=== PATIENT | male | born 1945 | race American Indian/Alaskan Native ===

== ENCOUNTER 2018-08-05 14:22 | Emergency (ER) | payer MEDICARE, OTHER ==
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
[2018-08-05 15:01] VITALS: BP 134/89
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
== END 2018-08-05 19:06 | disposition home or self-care (01) ==
LOC: ED 14:22
DX: S16.1XXA Strain of muscle, fascia and tendon at neck level, initial encounter (principal); S39.012A Strain of muscle, fascia and tendon of lower back, initial encounter; M79.601 Pain in right arm; K21.9 Gastro-esophageal reflux disease without esophagitis; Z87.891 Personal history of nicotine dependence; V49.49XA Driver injured in collision with other motor vehicles in traffic accident, initial encounter; Y93.89 Activity, other specified; Y92.89 Other specified places as the place of occurrence of the external cause; Y99.8 Other external cause status
CPT/HCPCS: 72040; 72100

== ENCOUNTER 2020-02-02 13:06 | Inpatient (IN) | payer MEDICARE, OTHER ==
--- NOTE | 2020-02-02 13:51 | Emergency Department Report ---
ED Shortness of Breath HPI - General Chief Complaint: Dyspnea/Respdistress Stated Complaint: SOB/DIZZY/DARK URINE/BODY ACHE Time Seen by Provider: 02/02/20 13:36 Source: patient, EMS Mode of arrival: Stretcher Limitations: No Limitations - History of Present Illness Initial Comments: 74-year-old male, history of enlarged prostate, hypercholesterolemia, presents to ED for evaluation. Patient states over the last 2 to 3 weeks he has been experiencing body aches, nausea, fatigue, slight cough, shortness of breath, decreased appetite, loss of smell and taste. Patient denies fever, vomiting, diarrhea. Patient states he has not been tested for COVID-19. MD Complaint: shortness of breath -: week(s) (2) Severity: moderate Consistency: intermittent Improves With: rest Worsens With: exertion Associated Symptoms: cough - Related Data Home Medications Medication Instructions Recorded Confirmed Last Taken Doxazosin [Cardura] 8 mg PO DAILY 04/03/14 06/07/14 06/06/14 Omeprazole [PriLOSEC] 20 mg PO HS 04/03/14 06/07/14 06/06/14 Simvastatin 20 mg PO HS 04/03/14 06/07/14 06/06/14 Citalopram [celeXA] 40 mg PO DAILY 04/12/14 06/07/14 06/06/14 Imipramine (Nf) [Tofranil (Nf)] 50 mg PO DAILY 04/12/14 06/07/14 06/06/14 Aspirin EC [Aspirin Enteric Coated 81 mg PO QDAY 06/07/14 06/07/14 2 Months Ago TAB] ~04/09/14 Previous Rx's Medication Instructions Recorded Last Taken Type Diclofenac EC [Voltaren] 25 mg PO TID PRN #30 tablet 08/05/18 Unknown Rx Menthol/Camphor [[place] 1 applicatio TP QID PRN #1 tube 08/05/18 Unknown Rx Ointment] Methocarbamol [Robaxin] 500 mg PO TID PRN #30 tablet 08/05/18 Unknown Rx predniSONE [Deltasone] 40 mg PO QDAY 5 Days #10 tab 08/05/18 Unknown Rx Allergies Allergy/AdvReac Type Severity Reaction Status Date / Time No Known Allergies Allergy Verified 08/05/18 15:01 ED Review of Systems ROS: Stated complaint: SOB/DIZZY/DARK URINE/BODY ACHE Other details as noted in HPI Comment: All other systems reviewed and negative Constitutional: malaise, weakness. denies: chills, fever ENT: other (Reports loss of smell and taste). denies: throat pain, congestion Respiratory: cough, shortness of breath Cardiovascular: denies: chest pain Gastrointestinal: nausea. denies: vomiting, diarrhea Musculoskeletal: myalgia Neurological: denies: headache ED Past Medical Hx - Past Medical History Previous Medical History?: Yes Hx Hypertension: No Hx Heart Attack/AMI: No Hx Congestive Heart Failure: No Hx GERD: Yes Hx Arthritis: No Hx Asthma: No Hx COPD: No Hx Tuberculosis: No Hx HIV: No Additional medical history: Curvative spine - Surgical History Past Surgical History?: No - Social History Smoking Status: Never Smoker Substance Use Type: None - Medications Home Medications: Home Medications Medication Instructions Recorded Confirmed Last Taken Type Doxazosin [Cardura] 8 mg PO DAILY 04/03/14 06/07/14 06/06/14 History Omeprazole [PriLOSEC] 20 mg PO HS 04/03/14 06/07/14 06/06/14 History Simvastatin 20 mg PO HS 04/03/14 06/07/14 06/06/14 History Citalopram [celeXA] 40 mg PO DAILY 04/12/14 06/07/14 06/06/14 History Imipramine (Nf) [Tofranil (Nf)] 50 mg PO DAILY 04/12/14 06/07/14 06/06/14 History Aspirin EC [Aspirin Enteric Coated 81 mg PO QDAY 06/07/14 06/07/14 2 Months Ago History TAB] ~04/09/14 Diclofenac EC [Voltaren] 25 mg PO TID PRN #30 tablet 08/05/18 Unknown Rx Menthol/Camphor [[place] 1 applicatio TP QID PRN #1 tube 08/05/18 Unknown Rx Ointment] Methocarbamol [Robaxin] 500 mg PO TID PRN #30 tablet 08/05/18 Unknown Rx predniSONE [Deltasone] 40 mg PO QDAY 5 Days #10 tab 08/05/18 Unknown Rx ED Physical Exam - General Limitations: No Limitations General appearance: alert, in no apparent distress - Head Head exam: Present: atraumatic, normocephalic - Eye Eye exam: Present: normal appearance, EOMI - ENT ENT exam: Present: mucous membranes moist - Neck Neck exam: Present: normal inspection - Respiratory Respiratory exam: Present: normal lung sounds bilaterally, respiratory distress (mild), other (Tachypneic) - Cardiovascular Cardiovascular Exam: Present: normal rhythm, tachycardia - GI/Abdominal GI/Abdominal exam: Present: soft. Absent: distended, tenderness - Extremities Exam Extremities exam: Present: normal inspection - Neurological Exam Neurological exam: Present: alert, oriented X3 - Psychiatric Psychiatric exam: Present: normal affect, normal mood - Skin Skin exam: Present: warm, dry, intact, normal color ED Course Vital Signs 02/02/20 02/02/20 02/02/20 13:13 13:20 13:30 Temperature 99.5 F Pulse Rate 120 H 127 H 101 H Respiratory 18 17 23 Rate Blood Pressure 138/94 128/79 O2 Sat by Pulse 97 97 96 Oximetry 02/02/20 02/02/20 02/02/20 13:46 13:53 14:00 Temperature Pulse Rate 102 H 100 H Respiratory 19 20 35 H Rate Blood Pressure 114/77 121/77 O2 Sat by Pulse 96 88 94 Oximetry 02/02/20 02/02/20 02/02/20 14:16 14:30 14:45 Temperature Pulse Rate 102 H 103 H 103 H Respiratory 32 H 30 H 36 H Rate Blood Pressure 120/77 117/76 111/72 O2 Sat by Pulse 93 95 95 Oximetry 02/02/20 02/02/20 02/02/20 15:00 15:15 15:30 Temperature Pulse Rate 102 H 103 H 101 H Respiratory 30 H 44 H 27 H Rate Blood Pressure 117/73 122/77 130/86 O2 Sat by Pulse 96 92 95 Oximetry 02/02/20 02/02/20 02/02/20 15:45 16:00 16:15 Temperature Pulse Rate 103 H 108 H 100 H Respiratory 35 H 27 H 24 Rate Blood Pressure 130/86 118/84 112/60 O2 Sat by Pulse 97 93 96 Oximetry 02/02/20 02/02/20 02/02/20 16:30 16:45 17:00 Temperature 99.9 F H Pulse Rate 103 H 105 H Respiratory 35 H 31 H Rate Blood Pressure 118/70 118/70 O2 Sat by Pulse 94 97 Oximetry 02/02/20 02/02/20 02/02/20 17:01 17:15 17:30 Temperature Pulse Rate 124 H Respiratory 27 H Rate Blood Pressure 123/91 123/91 126/91 O2 Sat by Pulse 90 91 94 Oximetry 02/02/20 02/02/20 02/02/20 17:45 18:01 18:15 Temperature Pulse Rate 125 H 121 H 106 H Respiratory 26 H 36 H 19 Rate Blood Pressure 126/87 140/84 150/86 O2 Sat by Pulse 94 93 95 Oximetry 02/02/20 18:30 Temperature Pulse Rate 100 H Respiratory 31 H Rate Blood Pressure 129/90 O2 Sat by Pulse 91 Oximetry ED Medical Decision Making - Lab Data Result diagrams: 02/02/20 13:46 02/02/20 15:42 - EKG Data -: EKG Interpreted by Me EKG shows normal: sinus rhythm, intervals, QRS complexes, ST-T waves Rate: tachycardia (rate 106) - EKG Data Interpretation: no acute changes - Radiology Data Radiology results: report reviewed, image reviewed - Medical Decision Making 74-year-old male presents to ED with 2 to 3-week history of symptoms which inc lude shortness of breath, loss of smell and taste, fatigue, decreased appetite, and slight cough. O2 sats 88% on room air. Chest x-ray shows patchy parenchymal opacities. Patient's symptoms are suspicious for COVID-19. Patient has been given Decadron, Rocephin, azithromycin. Blood cultures drawn. He is currently on on 3 L O2 via NC. Patient will be admitted by hospitalist, Dr. Donnelly, for further management. - Differential Diagnosis Pneumonia, COVID-19, pulmonary edema Critical Care Time: Yes Critical care time in (mins) excluding proc time.: 35 Critical care attestation.: If time is entered above; I have spent that time in minutes in the direct care of this critically ill patient, excluding procedure time. Critical Care Time: 35 min ED Disposition Clinical Impression: Suspected COVID-19 virus infection, Pneumonia, Sepsis Respiratory failure with hypoxia Qualifiers: Chronicity: acute Qualified Code(s): J96.01 - Acute respiratory failure with hypoxia Disposition: OP ADMIT IP TO THIS HOSP Is pt being admited?: Yes Condition: Stable Time of Disposition: 15:19
[2020-02-02 14:16] LABS: Basophils % (Auto) 0.6 % (0.0-1.8); Eosinophils # (Auto) 0.1 K/mm3 (0.0-0.4); Eosinophils % (Auto) 1.9 % (0.0-4.3); Lymphocytes # (Auto) 1.1 K/mm3 (1.2-5.4); Lymphocytes % (Auto) 16.6 % (13.4-35.0); Mean Corpuscular HGB Conc 36 % (32-34); Mean Corpuscular Volume 89 fl (84-94); Monocytes # (Auto) 0.6 K/mm3 (0.0-0.8); Platelet Count 303 K/mm3 (140-440); Red Blood Count 3.48 M/mm3 (3.65-5.03)
[2020-02-02 14:28] LABS: INR 1.05 (0.87-1.13); Partial Thromboplastin Time 37.8 Sec. (24.2-36.6)
[2020-02-02 14:42] LABS: Alanine Aminotransferase 48 units/L (7-56); Albumin 3.3 g/dL (3.9-5); BUN/Creatinine Ratio 19; Blood Urea Nitrogen 21 mg/dL (9-20); Calcium 9.1 mg/dL (8.4-10.2); Hemolysis Index 6
[2020-02-02 14:51] LABS: Bilirubin,Direct < 0.2 mg/dL (0-0.2)
--- NOTE | 2020-02-02 15:14 | XRay Report ---
CHEST 1 VIEW 1:52 PM INDICATION / CLINICAL INFORMATION: Shortness of breath. COMPARISON: None available. FINDINGS: SUPPORT DEVICES: None. HEART / MEDIASTINUM: The heart size and pulmonary vasculature are normal. LUNGS / PLEURA: Possible minimal areas of poorly defined patchy parenchymal opacity in the right mid to lower lung peripherally. No definite abnormality in the left lung. No pleural effusion. No pneumot horax. ADDITIONAL FINDINGS: Partial eventration of the right hemidiaphragm. Mild thoracolumbar scoliosis. IMPRESSION: Possible mild patchy areas of parenchymal opacity in the right lung. Atypical causes of p neumonia, including viral pneumonia, should be entered. Signer Name: Rigoberto Billings MD Signed: 02/02/2020 3:09 PM Workstation Name: [id number]
[2020-02-02] MEDS ORDERED: AZITHROMYCIN 250 MG TAB PO ONE (15:16)
[2020-02-02] MEDS ORDERED: cefTRIAXone/NS 1 GM/50 ML 1 GM/50 ML BAG IV ONE (15:16)
[2020-02-02] MEDS ORDERED: DEXAMETHASONE 4 MG TAB PO ONE (15:16)
--- NOTE | 2020-02-02 15:20 | History and Physical Report ---
History of Present Illness Chief complaint: I have not been feeling well History of present illness: 74 YO Male with HTN, GERD, HLD, BPH presents to ED for evaluation. Patient states that he has " not been feeling well" over the past 3 weeks with persistently worsening symptoms over the same timeframe. Patient acknowledges dry cough, weakness, shortness of breath, decreased exercise tolerance, malaise, body aches, loss of sense of smell, loss of sense of taste, and diminished oral intake. EMS notified and upon arrival the patient was found to be in distress with a pulse oximetry of 90% on room air. The patient was placed on submental oxygen and subsequently transported to [facility] for further care and evaluation of the aforementioned symptoms. The patient was seen and evaluated in the emergency department. All lab and imaging studies reviewed. Patient was found to have a pulse oximetry of 87% on room air with exertion which is consistent with acute hypoxemic respiratory failure. The patient underwent a chest x-ray and was found to have bilateral pneumonia as well as clinical symptoms consistent with sepsis. The patient was admitted to medical floor and initiated on sepsis protocol as well as coronavirus protocol due to increased risk of multiple organ system failure. Patient denies shaking chills, chest pain, palpitation, skin rash, recent ill contacts, unilateral leg swelling, calf pain, prolonged travel/immobility, individual/family history of DVT/PE/bleeding/blood clotting disorders, recent ill contacts, or known exposure to COVID-19. No prior admission for review. All medication listed at time of admission has been reconciled. Advanced care planning conducted in ED. Past History Past Medical History: GERD, hypertension, hyperlipidemia Past Surgical History: No surgical history, Other (Reviewed) Social history: . denies: smoking, alcohol abuse, prescription drug abuse Family history: hypertension Medications and Allergies Allergies Allergy/AdvReac Type Severity Reaction Status Date / Time No Known Allergies Allergy Verified 08/05/18 15:01 Home Medications Medication Instructions Recorded Confirmed Last Taken Type Doxazosin [Cardura] 8 mg PO DAILY 04/03/14 06/07/14 06/06/14 History Omeprazole [PriLOSEC] 20 mg PO HS 04/03/14 06/07/14 06/06/14 History Simvastatin 20 mg PO HS 04/03/14 06/07/14 06/06/14 History Citalopram [celeXA] 40 mg PO DAILY 04/12/14 06/07/14 06/06/14 History Imipramine (Nf) [Tofranil (Nf)] 50 mg PO DAILY 04/12/14 06/07/14 06/06/14 Hi story Aspirin EC [Aspirin Enteric Coated 81 mg PO QDAY 06/07/14 06/07/14 2 Months Ago History TAB] ~04/09/14 Diclofenac EC [Voltaren] 25 mg PO TID PRN #30 tablet 08/05/18 Unknown Rx Menthol/Camphor [[place] 1 applicatio TP QID PRN #1 tube 08/05/18 Unknown Rx Ointment] Methocarbamol [Robaxin] 500 mg PO TID PRN #30 tablet 08/05/18 Unknown Rx predniSONE [Deltasone] 40 mg PO QDAY 5 Days #10 tab 08/05/18 Unknown Rx Active Meds: Active Medications Ceftriaxone Sodium (Rocephin/Ns 1 Gm/50 Ml) 1 gm in 50 mls @ 100 mls/hr IV ONCE ONE; Protocol Stop: 02/02/20 15:45 Review of Systems Constitutional: fatigue, weakness, malaise Ears, nose, mouth and throat: no ear pain, no ear discharge, no tinnitis, no decreased hearing, no nose pain Cardiovascular: no chest pain, no orthopnea, no palpitations, no edema Respiratory: cough, shortness of breath, no cough with sputum, no excessive sputum, no hemoptysis Gastrointestinal: no abdominal pain, no vomiting, no diarrhea, no constipation, no hematemesis Genitourinary Male: no hematuria, no flank pain, no discharge, no urinary freq uency, no urinary hesitancy Rectal: no pain, no incontinence, no bleeding Musculoskeletal: no neck stiffness, no neck pain, no shooting arm pain, no arm numbness/tingling, no low back pain Integumentary: no rash, no pruritis, no redness, no sores, no jaundice Neurological: no transient paralysis, no paralysis, no weakness, no parathesias, no numbness, no tingling, no seizures Psychiatric: no anxiety, no memory loss, no change in sleep habits, no insomnia, no change in libido Endocrine: no heat intolerance, no excessive thirst, no polydipsia, no nocturia, no excessive sweating, no weight change Hematologic/Lymphatic: no easy bruising, no easy bleeding Allergic/Immunologic: no urticaria, no persistent infections, no anaphylaxis Exam - Constitutional Vitals: Temp Pulse Resp BP Pulse Ox 99.5 F 120 H 20 138/94 88 02/02/20 13:13 02/02/20 13:13 02/02/20 13:53 02/02/20 13:13 02/02/20 13:53 General appearance: Present: mild distress - EENT Eyes: Present: PERRL ENT: hearing intact, clear oral mucosa - Neck Neck: Present: supple, normal ROM - Respiratory Respiratory effort: labored, accessory muscle use, stridor Respiratory: bilateral: diminished, rhonchi - Cardiovascular Rhythm: other (Tachycardia) Heart Sounds: Present: S1 & S2. Absent: rub, click - Extremities Extremities: pulses symmetrical, No edema Peripheral Pulses: abnormal (Capillary refill greater than 3.5 seconds) - Abdominal General gastrointestinal: Present: soft, non-tender, non-distended, normal bowel sounds Male genitourinary: Present: normal - Integumentary Integumentary: Present: erythema, clammy, decreased turgor - Musculoskeletal Musculoskeletal: generalized weakness - Psychiatric Psychiatric: appropriate mood/affect, intact judgment & insight - Neurologic Neurologic: CNII-XII intact, moves all extremities HEART Score - HEART Score Troponin: Troponin T < 0.010 ng/mL (0.00-0.029) 02/02/20 13:46 Results - Labs CBC & Chem 7: 02/02/20 13:46 02/02/20 15:42 Labs: Abnormal lab results 02/02/20 02/02/20 02/02/20 Range/Units 13:46 13:46 14:00 RBC 3.48 L (3.65-5.03) M/mm3 Hgb 11.0 L (11.8-15.2) gm/dl Hct 31.0 L (35.5-45.6) % MCHC 36 H (32-34) % Lucas % (Auto) 9.0 H (0.0-7.3) % Lymph # (Auto) 1.1 L (1.2-5.4) K/mm3 Seg Neutrophils % 71.9 H (40.0-70.0) % APTT (24.2-36.6) Sec. D-Dimer (0-234) ng/mlDDU Sodium 135 L (137-145) mmol/L Potassium 3.5 L (3.6-5.0) mmol/L BUN 21 H (9-20) mg/dL Glucose 117 H (75-100) mg/dL Ferritin 813.5 H (30.0-300.0) ng/mL AST 62 H (5-40) units/L Lactate Dehydrogenase 345 H (91-180) units/L C-Reactive Protein 9.80 H (0.00-1.30) mg/dL Albumin 3.3 L (3.9-5) g/dL 02/02/20 Range/Units Unknown RBC (3.65-5.03) M/mm3 Hgb (11.8-15.2) gm/dl Hct (35.5-45.6) % MCHC (32-34) % Lucas % (Auto) (0.0-7.3) % Lymph # (Auto) (1.2-5.4) K/mm3 Seg Neutrophils % (40.0-70.0) % APTT 37.8 H (24.2-36.6) Sec. D-Dimer 595.65 H (0-234) ng/mlDDU Sodium (137-145) mmol/L Potassium (3.6-5.0) mmol/L BUN (9-20) mg/dL Glucose (75-100) mg/dL Ferritin (30.0-300.0) ng/mL AST (5-40) units/L Lactate Dehydrogenase (91-180) units/L C-Reactive Protein (0.00-1.30) mg/dL Albumin (3.9-5) g/dL Assessment and Plan - Patient Problems (1) Sepsis Current Visit: Yes Status: Acute Plan to address problem: Sepsis protocol: CBC, CMP, chest x-ray, urinalysis, blood culture, IV antibiotic therapy. Hold IV fluid resuscitation therapy for now due to suspected coronavirus infection. Care is taken to avoid fluid overload and flash pulmonary edema. Monitor fluid balance, monitor urine output every shift, maintain mean arterial blood pressure greater than 60, serial lactic acid level, (2) Pneumonia Current Visit: Yes Status: Acute Plan to address problem: Pneumonia protocol: Chest x-ray, CBC, CMP, blood culture, IV antibiotic therapy, nebulizer therapy, pulse oximetry, blood culture. (3) Respiratory failure with hypoxia Current Visit: Yes Status: Acute Qualifiers: Chronicity: acute Qualified Code(s): J96.01 - Acute respiratory failure with hypoxia Plan to address problem: Supplemental oxygen, chest x-ray, nebulizer therapy, pulse oximetry, will initiate high flow supplemental oxygen if patient is unable to maintain pulse oximetry above 90% on supplemental oxygen via nasal cannula. Noninvasive positive pressure ventilation as clinically indicated. (4) Suspected COVID-19 virus infection Current Visit: Yes Status: Acute Plan to address problem: Coronavirus protocol: Contact precautions, isolation precautions, prone positioning while in bed, supportive care, supplemental oxygen, pulse oximetry, nebulizer therapy, coronavirus PCR ordered and is pending at time of admission. (5) DVT prophylaxis Current Visit: Yes Status: Acute Plan to address problem: SCD to bilateral lower extremities while in bed, prophylactic anticoagulation (6) Advance care planning Current Visit: Yes Status: Acute Plan to address problem: Disease education conducted, patient is full code, prognosis discussed, care plan discussed, patient knowledges understanding and agreement with care plan, +30 minutes
[2020-02-02] MEDS ORDERED: ACETAMINOPHEN 325 MG TAB PO PRN (15:22)
[2020-02-02] MEDS ORDERED: ALBUTEROL 2.5 MG/3 ML NEBU IH PRN (15:22)
[2020-02-02] MEDS ORDERED: ONDANSETRON 4 MG/2 ML INJ IV PRN (15:22)
[2020-02-02] MEDS ORDERED: MENTHOL TP PRN (15:25)
[2020-02-02] MEDS ORDERED: DICLOFENAC EC 25 MG TAB PO PRN (15:25)
[2020-02-02] MEDS ORDERED: [UNRECOGNIZED DRUG - OTHER] TP PRN (15:25)
[2020-02-02] MEDS ORDERED: CAMPHOR TP PRN (15:25)
[2020-02-02] MEDS: HYDROmorphone 1 MG/1 ML INJ IV PRN ×2 (16:32→20:41)
[2020-02-02 16:43] LABS: C-Reactive Protein 9.6 mg/dL (0.00-1.30)
[2020-02-02] MEDS: ACETAMINOPHEN 325 MG TAB PO PRN (18:43)
[2020-02-02] MEDS ORDERED: NON-FORMULARY EACH (Omeprazole [Prilosec] 20 MG Capsule.Dr) PO SCH (22:00)
[2020-02-02] MEDS ORDERED: NON-FORMULARY EACH (Simvastatin [Simvastatin] 10 MG Tablet) PO SCH (22:00)
[2020-02-02] MEDS: PRAVASTATIN 40 MG TAB PO SCH (22:53)
[2020-02-02] MEDS: FAMOTIDINE 20 MG TAB PO SCH (22:53)
[2020-02-02] MEDS: methylPREDNISolone Sod Succinate 40 MG/1 ML INJ IV SCH (22:53)
[2020-02-02] MEDS: HEPARIN 5,000 UNIT/1 ML VIAL SUB-Q SCH (22:54)
[2020-02-03 05:57] LABS: Basophils % (Auto) 0.1 % (0.0-1.8); Hematocrit 43.9 % (35.5-45.6); Hemoglobin 14.6 gm/dl (11.8-15.2); Lymphocytes # (Auto) 0.7 K/mm3 (1.2-5.4); Lymphocytes % (Auto) 20.9 % (13.4-35.0); Mean Corpuscular HGB Conc 33 % (32-34); Mean Corpuscular Volume 91 fl (84-94); Monocytes # (Auto) 0.2 K/mm3 (0.0-0.8); Monocytes % (Auto) 5.6 % (0.0-7.3); Platelet Count 265 K/mm3 (140-440); Red Blood Count 4.81 M/mm3 (3.65-5.03); Red Cell Distribution Width 13.6 % (13.2-15.2)
[2020-02-03 06:14] LABS: BUN/Creatinine Ratio 29; Blood Urea Nitrogen 23 mg/dL (9-20); Hemolysis Index 3
[2020-02-03] MEDS: methylPREDNISolone Sod Succinate 40 MG/1 ML INJ IV SCH (06:37)
[2020-02-03] MEDS: ASPIRIN EC 81 MG TAB PO SCH (09:55)
[2020-02-03] MEDS: HEPARIN 5,000 UNIT/1 ML VIAL SUB-Q SCH ×2 (09:56→21:23)
[2020-02-03] MEDS: CITALOPRAM 10 MG TAB PO SCH (09:57)
[2020-02-03] MEDS ORDERED: AZITHROMYCIN 250 MG TAB PO SCH (10:00)
[2020-02-03] MEDS ORDERED: cefTRIAXone/NS 2 GM/100 ML 2 GM/100 ML BAG IV SCH (10:00)
[2020-02-03] MEDS ORDERED: IMIPRAMINE 25 MG PO SCH (10:00)
[2020-02-03] MEDS ORDERED: AZITHROMYCIN 500 MG in SODIUM CHLORIDE 0.9% 250ML 250 ML IV SCH (10:00)
[2020-02-03] MEDS: FAMOTIDINE 20 MG TAB PO SCH ×2 (10:26→21:23)
[2020-02-03] MEDS: DOXAZOSIN 4 MG TAB PO SCH (10:55)
--- NOTE | 2020-02-03 11:17 | Consultation ---
History of Present Illness Reason for consult: dyspnea History of present illness: This is a gentleman with history of 3 weeks of weakness and sob. Found to be hypoxic and pneumonia on cxr in ER. Presently on o2 still sob feels slightly better. He reports that for the past 3 weeks he has had sob and cough w associated weakness. These symptoms never improved and on the day of admssion he had worsening dyspnea and cough. Ems called o2 sat 90% on ra supplement o2 started . In the er noted to hypoxic , cxr noted w rt sided pneumonia.. Presently awaiting covid test Past History Past Medical History: GERD, hypertension, hyperlipidemia Past Surgical History: No surgical history, Other (Reviewed) Social history: . denies: smoking, alcohol abuse, prescription drug abuse Family history: hypertension Medications and Allergies Allergies Allergy/AdvReac Type Severity Reaction Status Date / Time No Known Allergies Allergy Verified 08/05/18 15:01 Home Medications Medication Instructions Recorded Confirmed Last Taken Type Doxazosin [Cardura] 8 mg PO DAILY 04/03/14 02/02/20 06/06/14 History Simvastatin 20 mg PO HS 04/03/14 02/02/20 06/06/14 History Citalopram [celeXA] 40 mg PO DAILY 04/12/14 02/02/20 06/06/14 History Imipramine (Nf) [Tofranil (Nf)] 50 mg PO DAILY 04/12/14 02/02/20 06/06/14 History Finasteride [Proscar] 5 mg PO QDAY 02/02/20 02/02/20 Unknown History Pantoprazole [Protonix] 40 mg PO QDAY 02/02/20 02/02/20 Unknown History Active Meds: Active Medications Acetaminophen (Acetaminophen 325 Mg Tab) 650 mg PO Q4H PRN PRN Reason: Pain MILD(1-3)/Fever >100.5/GUEVARA Last Admin: 02/02/20 18:43 Dose: 650 mg Documented by: Albuterol (Albuterol 2.5 Mg/3 Ml Nebu) 2.5 mg IH Q4HRT PRN PRN Reason: Shortness Of Breath Aspirin (Aspirin Ec 81 Mg Tab) 81 mg PO QDAY [facility] Last Admin: 02/03/20 09:55 Dose: 81 mg Documented by: Azithromycin (Azithromycin 250 Mg Tab) 500 mg PO QDAY [facility] Last Admin: 02/03/20 09:57 Dose: 500 mg Documented by: Citalopram Hydrobromide (Citalopram 10 Mg Tab) 40 mg PO DAILY [facility] Last Admin: 02/03/20 09:57 Dose: 40 mg Documented by: Diclofenac Sodium (Diclofenac Ec 25 Mg Tab) 25 mg PO TID PRN PRN Reason: pain Doxazosin Mesylate (Doxazosin 4 Mg Tab) 8 mg PO DAILY [facility] Last Admin: 02/03/20 10:55 Dose: 8 mg Documented by: Famotidine (Famotidine 20 Mg Tab) 20 mg PO BID [facility] Last Admin: 02/03/20 10:26 Dose: 20 mg Documented by: Heparin Sodium (Porcine) (Heparin 5,000 Unit/1 Ml Vial) 5,000 unit SUB-Q Q12HR [facility] Last Admin: 02/03/20 09:56 Dose: 5,000 unit Documented by: Hydromorphone HCl (Hydromorphone 1 Mg/1 Ml Inj) 0.25 mg IV Q4H PRN PRN Reason: Pain, Moderate (4-6) Last Admin: 02/02/20 20:41 Dose: 0.25 mg Documented by: Ceftriaxone Sodium (Rocephin/Ns 2 Gm/100 Ml) 2 gm in 100 mls @ 200 mls/hr IV Q24HR [facility]; Protocol Last Admin: 02/03/20 09:57 Dose: 200 mls/hr Documented by: Methylprednisolone Sodium Succinate (Methylprednisolone Sod Succinate 40 Mg/1 Ml Inj) 40 mg IV Q8HR [facility] Last Admin: 02/03/20 06:37 Dose: 40 mg Documented by: Miscellaneous Medication (Imipramine) 50 mg PO DAILY [facility] Ondansetron HCl (Ondansetron 4 Mg/2 Ml Inj) 4 mg IV Q8H PRN PRN Reason: Nausea And Vomiting Pravastatin Sodium (Pravastatin 40 Mg Tab) 40 mg PO QHS [facility] Last Admin: 02/02/20 22:53 Dose: 40 mg Documented by: Sodium Chloride (Sodium Chloride 0.9% 10 Ml Flush Syringe) 10 ml IV BID [facility] Last Admin: 02/03/20 10:01 Dose: 10 ml Documented by: Sodium Chloride (Sodium Chloride 0.9% 10 Ml Flush Syringe) 10 ml IV PRN PRN PRN Reason: LINE FLUSH Last Admin: 02/03/20 06:37 Dose: 10 ml Documented by: Review of Systems Constitutional: fatigue, weakness, malaise, poor appetite Respiratory: cough, shortness of breath Physical Examination Vital signs: Vital Signs Temp Pulse Resp BP Pulse Ox 99.5 F 120 H 18 138/94 97 02/02/20 13:13 02/02/20 13:13 02/02/20 13:13 02/02/20 13:13 02/02/20 13:13 General appearance: other (mild distress) Eyes: non-icteric ENT: oropharynx moist Neck: supple Ascultation: Bilateral: rhonchi Cardiovascular: regular rate and rhythm Gastrointestinal: normoactive bowel sounds, soft, non-tender, non-distended Integumentary: normal Extremities: no cyanosis normal mental status mood appropriate Results - Laboratory Findings CBC and BMP: 02/03/20 05:17 02/03/20 05:17 PT/INR, D-dimer PT 13.6 Sec. (12.2-14.9) 02/02/20 Unknown INR 1.05 (0.87-1.13) 02/02/20 Unknown D-Dimer 595.65 ng/mlDDU (0-234) H 02/02/20 Unknown Abnormal lab findings: Abnormal Labs 02/02/20 02/02/20 02/02/20 13:46 13:46 14:00 WBC RBC 3.48 L Hgb 11.0 L Hct 31.0 L MCHC 36 H [place] % (Auto) 9.0 H Lymph # (Auto) 1.1 L Seg Neutrophils % 71.9 H APTT D-Dimer Sodium 135 L Potassium 3.5 L BUN 21 H Glucose 117 H Ferritin 813.5 H AST 62 H Lactate Dehydrogenase 345 H C-Reactive Protein 9.80 H Albumin 3.3 L 02/02/20 02/02/20 02/02/20 15:42 15:42 15:42 WBC RBC Hgb Hct MCHC [place] % (Auto) Lymph # (Auto) Seg Neutrophils % APTT D-Dimer 569.00 H Sodium Potassium BUN Glucose 107 H Ferritin 859.1 H AST Lactate Dehydrogenase 509 H C-Reactive Protein 9.60 H Albumin 02/02/20 02/03/20 02/03/20 Unknown 05:17 05:17 WBC 3.5 L RBC Hgb Hct MCHC [place] % (Auto) Lymph # (Auto) 0.7 L Seg Neutrophils % 73.4 H APTT 37.8 H D-Dimer 595.65 H Sodium 136 L Potassium BUN 23 H Glucose 204 H Ferritin AST Lactate Dehydrogenase C-Reactive Protein Albumin - Diagnostic Findings Chest x-ray: report reviewed, image reviewed Assessment and Plan - Patient Problems (1) Acute respiratory failure with hypoxemia Current Visit: Yes Status: Acute (2) Pneumonia Current Visit: Yes Status: Acute (3) Sepsis Current Visit: Yes Status: Acute (4) Suspected COVID-19 virus infection Current Visit: Yes Status: Acute (5) Hypertension Current Visit: Yes Status: Acute (6) Leukopenia Current Visit: Yes Status: Acute
[2020-02-03 12:49] LABS: Hematocrit 44.6 % (35.5-45.6); Hemoglobin 14.7 gm/dl (11.8-15.2); Mean Corpuscular HGB Conc 33 % (32-34); Mean Corpuscular Volume 92 fl (84-94); Platelet Count 276 K/mm3 (140-440); Red Blood Count 4.84 M/mm3 (3.65-5.03); Red Cell Distribution Width 14.3 % (13.2-15.2)
[2020-02-03] MEDS: DEXAMETHASONE 4 MG TAB PO SCH (13:18)
--- NOTE | 2020-02-03 16:39 | Progress Note ---
Assessment and Plan -- Sepsis Due to COVID-19 pneumonia Continue to treat for underlying cause Patient has normal procalcitonin level -- COVID 19 Pneumonia Coronavirus protocol: Contact precautions, isolation precautions, prone positioning while in bed, supportive care, supplemental oxygen, pulse oximetry, nebulizer therapy, IV steroid, coronavirus PCR ordered and positive Will order for COVID-19 antibody, will follow ID recommendation -- Acute Respiratory failure with hypoxia Due to COVID-19 pneumonia Patient currently on 6 L O2 We will continue IV steroid, scheduled breathing treatment -- DVT prophylaxis SCD to bilateral lower extremities while in bed, prophylactic anticoagulation -- Advance care planning Disease education conducted, patient is full code, prognosis discussed, care plan discussed, patient knowledges understanding and agreement with care plan, +30 minutes 02/02: Patient tested positive for Covid, continue dexamethasone. Will check for a cough to antibody response. Patient might benefit for convalescent plasma therapy and IV remdesivir. Will await for ID recommendation. Subjective Date of service: 02/03/20 Interval history: Patient seen and examined. Medical records and medication list reviewed. No acute event overnight noted by the RN. Patient c/o difficulty breathing. Patient is tolerating diet. Positive for Covid test Discussed plan of care at bedside with patient. Objective - Exam Narrative Exam: GENERAL: well-developed and well-nourished AAM lying on bed appeared to be in no discomfort. HEENT: Normocephalic. Atraumatic. No conjunctival congestion or icterus. Patient has moist mucous membranes. NECK: Supple. Trachea midline. CHEST/LUNGS: diminished BS auscultated bilaterally, breathing nonlabored. HEART/CARDIOVASCULAR: Regular in rate and rhythm. S1 and S2 positive. ABDOMEN: Abdomen is soft, nontender. Patient has normal bowel sounds. SKIN: There is no rash. Warm and dry. NEURO: No focal motor deficit. Follows command. MUSCULOSKELETAL: No joint effusion or tenderness. EXTRIMITY: No edema, no cyanosis or clubbing. PSYCH: Cooperative. - Constitutional Vitals: Vital Signs - 12hr 02/03/20 02/03/20 05:59 11:43 Temperature 98.2 F 98.2 F Pulse Rate 104 H 95 H Respiratory 20 20 Rate Blood Pressure 134/82 129/88 O2 Sat by Pulse 91 92 Oximetry - Labs CBC & Chem 7: 02/03/20 12:32 02/03/20 05:17 Labs: Abnormal lab results 02/02/20 02/02/20 02/02/20 Range/Units 15:42 15:42 15:42 WBC (4.5-11.0) K/mm3 Lymph # (Auto) (1.2-5.4) K/mm3 Seg Neutrophils % (40.0-70.0) % D-Dimer 569.00 H (0-234) ng/mlDDU Sodium (137-145) mmol/L BUN (9-20) mg/dL Glucose 107 H (75-100) mg/dL Ferritin 859.1 H (30.0-300.0) ng/mL Lactate Dehydrogenase 509 H (91-180) units/L C-Reactive Protein 9.60 H (0.00-1.30) mg/dL Coronavirus (PCR) (Negative) 02/03/20 02/03/20 02/03/20 Range/Units 05:17 05:17 10:44 WBC 3.5 L (4.5-11.0) K/mm3 Lymph # (Auto) 0.7 L (1.2-5.4) K/mm3 Seg Neutrophils % 73.4 H (40.0-70.0) % D-Dimer (0-234) ng/mlDDU Sodium 136 L (137-145) mmol/L BUN 23 H (9-20) mg/dL Glucose 204 H (75-100) mg/dL Ferritin (30.0-300.0) ng/mL Lactate Dehydrogenase (91-180) units/L C-Reactive Protein (0.00-1.30) mg/dL Coronavirus (PCR) Positive A (Negative) HEART Score - HEART Score Troponin: Troponin T < 0.010 ng/mL (0.00-0.029) 02/02/20 13:46
[2020-02-03] MEDS: PRAVASTATIN 40 MG TAB PO SCH (21:23)
[2020-02-04] MEDS ORDERED: REMDESIVIR 200 MG in SODIUM CHLORIDE 0.9% 250ML 250 ML IV ONE (09:56)
[2020-02-04] MEDS: DOXAZOSIN 4 MG TAB PO SCH (10:55)
[2020-02-04] MEDS: CITALOPRAM 10 MG TAB PO SCH (10:55)
[2020-02-04] MEDS: ASPIRIN EC 81 MG TAB PO SCH (10:56)
[2020-02-04] MEDS: DEXAMETHASONE 4 MG TAB PO SCH (10:56)
[2020-02-04] MEDS: HEPARIN 5,000 UNIT/1 ML VIAL SUB-Q SCH (10:56)
[2020-02-04] MEDS: FINASTERIDE 5 MG TAB PO SCH (10:57)
[2020-02-04] MEDS: FAMOTIDINE 20 MG TAB PO SCH ×2 (10:57→22:46)
[2020-02-04] MEDS: PANTOPRAZOLE 40 MG TAB PO SCH (10:57)
[2020-02-04] MEDS ORDERED: FUROSEMIDE 40 MG/4 ML INJ IV ONE (11:00)
[2020-02-04] MEDS: ACETAMINOPHEN 325 MG TAB PO PRN (11:00)
--- NOTE | 2020-02-04 11:38 | Consultation ---
History of Present Illness - Reason for Consult Consult date: 02/04/20 - History of Present Illness 74-year-old man past medical history hypertension, hyperlipidemia, BPH admitted to hospital for general malaise of the past 3 weeks. He complains of cough weakness, shortness of breath, typical Covid symptoms. Symptoms were progressive over that timeframe since then. He was brought to the hospital for hypoxia. Denies any other symptoms. Febrile to 103.1. White count is 6.5, procalcitonin is normal, renal function is normal, inflammatory markers are elevated. Covid testing positive. Blood cultures currently pending. He is on 6 L nasal cannula. Imaging personally reviewed: Chest x-ray: Mild patchy areas of parenchymal opacity in the right lung. Review of Systems: Bold if positive, otherwise negative General: fevers, chills, rigors HEENT: visual disturbance, diplopia, eye pain Respiratory: cough, sputum, hemoptysis, shortness of breath Cardiovascular: chest pain, syncope Gastrointestinal: nausea, vomiting, diarrhea, abdominal pain Genitourinary: dysuria, hematuria, flank pain Musculoskeletal: neck pain, back pain, joint pain, edema Neurologic: headaches, seizures Hematologic: easy bruising or bleeding Endocrine: night sweats, acute weight loss Skin: rash, jaundice, redness Psychiatric: suicidal, homicidal ideation Past History Past Medical History: GERD, hypertension, hyperlipidemia Past Surgical History: No surgical history, Other (Reviewed) Social history: . denies: smoking, alcohol abuse, prescription drug abu se Family history: hypertension Medications and Allergies Allergies Allergy/AdvReac Type Severity Reaction Status Date / Time No Known Allergies Allergy Verified 08/05/18 15:01 Home Medications Medication Instructions Recorded Confirmed Last Taken Type Doxazosin [Cardura] 8 mg PO DAILY 04/03/14 02/02/20 06/06/14 History Simvastatin 20 mg PO HS 04/03/14 02/02/20 06/06/14 History Citalopram [celeXA] 40 mg PO DAILY 04/12/14 02/02/20 06/06/14 History Imipramine (Nf) [Tofranil (Nf)] 50 mg PO DAILY 04/12/14 02/02/20 06/06/14 History Finasteride [Proscar] 5 mg PO QDAY 02/02/20 02/02/20 Unknown History Pantoprazole [Protonix] 40 mg PO QDAY 02/02/20 02/02/20 Unknown History Active Meds: Active Medications Acetaminophen (Acetaminophen 325 Mg Tab) 650 mg PO Q4H PRN PRN Reason: Pain MILD(1-3)/Fever >100.5/GUEVARA Last Admin: 02/04/20 11:00 Dose: 650 mg Documented by: Albuterol (Albuterol 2.5 Mg/3 Ml Nebu) 2.5 mg IH Q4HRT PRN PRN Reason: Shortness Of Breath Aspirin (Aspirin Ec 81 Mg Tab) 81 mg PO QDAY [facility] Last Admin: 02/04/20 10:56 Dose: 81 mg Documented by: Citalopram Hydrobromide (Citalopram 10 Mg Tab) 40 mg PO DAILY [facility] Last Admin: 02/04/20 10:55 Dose: 40 mg Documented by: Dexamethasone (Dexamethasone 4 Mg Tab) 6 mg PO DAILY [facility] Stop: 02/12/20 10:01 Last Admin: 02/04/20 10:56 Dose: 6 mg Documented by: Diclofenac Sodium (Diclofenac Ec 25 Mg Tab) 25 mg PO TID PRN PRN Reason: pain Doxazosin Mesylate (Doxazosin 4 Mg Tab) 8 mg PO DAILY [facility] Last Admin: 02/04/20 10:55 Dose: 8 mg Documented by: Famotidine (Famotidine 20 Mg Tab) 20 mg PO BID [facility] Last Admin: 02/04/20 10:57 Dose: 20 mg Documented by: Finasteride (Finasteride 5 Mg Tab) 5 mg PO QDAY [facility] Last Admin: 02/04/20 10:57 Dose: 5 mg Documented by: Heparin Sodium (Porcine) (Heparin 5,000 Unit/1 Ml Vial) 5,000 unit SUB-Q Q12HR [facility] Last Admin: 02/04/20 10:56 Dose: 5,000 unit Documented by: Hydromorphone HCl (Hydromorphone 1 Mg/1 Ml Inj) 0.25 mg IV Q4H PRN PRN Reason: Pain, Moderate (4-6) Last Admin: 02/02/20 20:41 Dose: 0.25 mg Documented by: REMDESIVIR 200 mg/ Sodium (Chloride) 250 mls @ 500 mls/hr IV ONCE ONE Stop: 02/04/20 10:25 REMDESIVIR 100 mg/ Sodium (Chloride) 250 mls @ 500 mls/hr IV Q24HR@2100 [facility] Stop: 02/08/20 21:29 Miscellaneous Medication (Imipramine) 50 mg PO DAILY [facility] Ondansetron HCl (Ondansetron 4 Mg/2 Ml Inj) 4 mg IV Q8H PRN PRN Reason: Nausea And Vomiting Pantoprazole Sodium (Pantoprazole 40 Mg Tab) 40 mg PO QDAY [facility] Last Admin: 02/04/20 10:57 Dose: 40 mg Documented by: Pravastatin Sodium (Pravastatin 40 Mg Tab) 40 mg PO QHS [facility] Last Admin: 02/03/20 21:23 Dose: 40 mg Documented by: Sodium Chloride (Sodium Chloride 0.9% 10 Ml Flush Syringe) 10 ml IV BID [facility] Last Admin: 02/04/20 10:57 Dose: 10 ml Documented by: Sodium Chloride (Sodium Chloride 0.9% 10 Ml Flush Syringe) 10 ml IV PRN PRN PRN Reason: LINE FLUSH Last Admin: 02/03/20 06:37 Dose: 10 ml Documented by: Sodium Chloride (Sodium Chloride 0.9% 50 Ml Ivpb) 50 ml IV Q24HR@2100 [facility] Stop: 02/08/20 21:01 Physical Examination - Physical Exam Narrative exam: Physical exam deferred due to PPE conservation strategy. Please refer to primary team's note. - Constitutional Vitals: Vital Signs Temp Pulse Resp BP Pulse Ox 103.1 F H 106 H 20 133/91 95 02/04/20 10:34 02/04/20 10:55 02/04/20 10:34 02/04/20 10:55 02/04/20 10:34 Temperature -Last 24 Hours Temperature 103.1 F Temperature 98.7 F Temperature 99.2 F Temperature 98.3 F Temperature 98.2 F Results - Labs CBC & Chem 7: 02/03/20 12:32 02/03/20 05:17 Labs: Abnormal lab results 02/03/20 Range/Units 10:44 Coronavirus (PCR) Positive A (Negative) Assessment and Plan Cultures: Blood culture Urine culture Sputum culture Wound culture A/P: 74-year-old man past medical history hypertension, hyperlipidemia, BPH admitted with COVID-19 pneumonia #COVID-19 pneumonia: Presented with 3 weeks of symptoms, likely outside the utility window of remdesivir. Continue steroids. #Acute hypoxemic respiratory failure: Likely secondary to COVID-19 infection. Currently on 6 L nasal cannula Recs: -Continue dexamethasone 6 mg IV/PO daily for 10 days -Start remdesivir as it is likely too late for it to be useful in his disease course. -Obtain daily inflammatory markers - ferritin, Ddimer, CRP, LDH -Anticoagulation per hospital protocol -Proning as able -Stopped antibiotics due to normal procalcitonin. Dr. Huizar taking over tomorrow Thank you for the consult, we will continue to follow. Francisco Vilchis MD [facility] O: [phone] F: [phone]
--- NOTE | 2020-02-04 12:42 | Progress Note ---
Assessment and Plan - Patient Problems (1) Acute respiratory failure with hypoxemia Current Visit: Yes Status: Acute (2) Pneumonia Current Visit: Yes Status: Acute (3) Sepsis Current Visit: Yes Status: Acute (4) Suspected COVID-19 virus infection Current Visit: Yes Status: Acute (5) Hypertension Current Visit: Yes Status: Acute (6) Leukopenia Current Visit: Yes Status: Acute Subjective Interval history: febrile last pm still w cough Objective Vital Signs - 12hr 02/04/20 02/04/20 02/04/20 04:29 08:09 09:33 Temperature 98.7 F Pulse Rate 106 H Respiratory 20 Rate Blood Pressure 138/86 O2 Sat by Pulse 90 96 90 Oximetry 02/04/20 02/04/20 10:34 10:55 Temperature 103.1 F H Pulse Rate 106 H 106 H Respiratory 20 Rate Blood Pressure 133/91 133/91 O2 Sat by Pulse 95 Oximetry Constitutional: no acute distress Eyes: non-icteric ENT: oropharynx moist Neck: supple Ascultation: Bilateral: rhonchi Cardiovascular: regular rate and rhythm Gastrointestinal: normoactive bowel sounds, soft, non-tender, non-distended Integumentary: normal Extremities: no cyanosis Neurologic: normal mental status Psychiatric: mood appropriate CBC and BMP: 02/03/20 12:32 02/03/20 05:17 ABG, PT/INR, D-dimer: PT/INR, D-dimer PT 13.6 Sec. (12.2-14.9) 02/02/20 Unknown INR 1.05 (0.87-1.13) 02/02/20 Unknown D-Dimer 595.65 ng/mlDDU (0-234) H 02/02/20 Unknown Abnormal lab findings: Abnormal Labs 02/02/20 02/02/20 02/02/20 13:46 13:46 14:00 WBC RBC 3.48 L Hgb 11.0 L Hct 31.0 L MCHC 36 H [place] % (Auto) 9.0 H Lymph # (Auto) 1.1 L Seg Neutrophils % 71.9 H APTT D-Dimer Sodium 135 L Potassium 3.5 L BUN 21 H Glucose 117 H Ferritin 813.5 H AST 62 H Lactate Dehydrogenase 345 H C-Reactive Protein 9.80 H Albumin 3.3 L Coronavirus (PCR) 02/02/20 02/02/20 02/02/20 15:42 15:42 15:42 WBC RBC Hgb Hct MCHC [place] % (Auto) Lymph # (Auto) Seg Neutrophils % APTT D-Dimer 569.00 H Sodium Potassium BUN Glucose 107 H Ferritin 859.1 H AST Lactate Dehydrogenase 509 H C-Reactive Protein 9.60 H Albumin Coronavirus (PCR) 02/02/20 02/03/20 02/03/20 Unknown 05:17 05:17 WBC 3.5 L RBC Hgb Hct MCHC [place] % (Auto) Lymph # (Auto) 0.7 L Seg Neutrophils % 73.4 H APTT 37.8 H D-Dimer 595.65 H Sodium 136 L Potassium BUN 23 H Glucose 204 H Ferritin AST Lactate Dehydrogenase C-Reactive Protein Albumin Coronavirus (PCR) 02/03/20 10:44 WBC RBC Hgb Hct MCHC [place] % (Auto) Lymph # (Auto) Seg Neutrophils % APTT D-Dimer Sodium Potassium BUN Glucose Ferritin AST Lactate Dehydrogenase C-Reactive Protein Albumin Coronavirus (PCR) Positive A
--- NOTE | 2020-02-04 14:15 | Progress Note ---
Assessment and Plan -- Sepsis Due to COVID-19 pneumonia Continue to treat for underlying cause Patient has normal procalcitonin level -- COVID 19 Pneumonia Coronavirus protocol: Contact precautions, isolation precautions, prone positioning while in bed, supportive care, supplemental oxygen, pulse oximetry, nebulizer therapy, IV steroid, coronavirus PCR ordered and positive ordered for COVID-19 antibody, will follow ID recommendation -- Acute Respiratory failure with hypoxia Due to COVID-19 pneumonia Patient currently on 6 L O2 Continue IV steroid, scheduled breathing treatment -- DVT prophylaxis SCD to bilateral lower extremities while in bed, prophylactic anticoagulation -- Advance care planning Disease education conducted, patient is full code, prognosis discussed, care plan discussed, patient knowledges understanding and agreement with care plan, +30 minutes 02/02: Patient tested positive for Covid, continue dexamethasone. Will check for a cough to antibody response. Patient might benefit for convalescent plasma therapy and IV remdesivir. Will await for ID recommendation. 02/03: Not a candidate for remdesivir as he started symptom 2-3 weeks ago. will check for ACOV2 antibody. ID following. Subjective Date of service: 02/04/20 Interval history: Patient seen and examined. Medical records and medication list reviewed. No acute event overnight noted by the RN. Patient c/o difficulty breathing. Patient is tolerating diet. Positive for Covid test, patient on 6L n/c O2 Discussed plan of care at bedside with patient. Objective - Exam Narrative Exam: GENERAL: well-developed and well-nourished AAM lying on bed appeared to be in no discomfort. HEENT: Normocephalic. Atraumatic. No conjunctival congestion or icterus. Patient has moist mucous membranes. NECK: Supple. Trachea midline. CHEST/LUNGS: diminished BS auscultated bilaterally, breathing nonlabored. HEART/CARDIOVASCULAR: Regular in rate and rhythm. S1 and S2 positive. ABDOMEN: Abdomen is soft, nontender. Patient has normal bowel sounds. SKIN: There is no rash. Warm and dry. NEURO: No focal motor deficit. Follows command. MUSCULOSKELETAL: No joint effusion or tenderness. EXTRIMITY: No edema, no cyanosis or clubbing. PSYCH: Cooperative. - Constitutional Vitals: Vital Signs - 12hr 02/04/20 02/04/20 02/04/20 04:29 08:09 09:33 Temperature 98.7 F Pulse Rate 106 H Respiratory 20 Rate Blood Pressure 138/86 O2 Sat by Pulse 90 96 90 Oximetry 02/04/20 02/04/20 10:34 10:55 Temperature 103.1 F H Pulse Rate 106 H 106 H Respiratory 20 Rate Blood Pressure 133/91 133/91 O2 Sat by Pulse 95 Oximetry - Labs CBC & Chem 7: 02/03/20 12:32 02/03/20 05:17 Labs: Abnormal lab results 02/03/20 Range/Units 10:44 Coronavirus (PCR) Positive A (Negative) HEART Score - HEART Score Troponin: Troponin T < 0.010 ng/mL (0.00-0.029) 02/02/20 13:46
[2020-02-04] MEDS: CHOLECALCIFEROL (VIT D3) 5,000 UNIT TAB PO SCH (15:50)
[2020-02-04] MEDS ORDERED: SODIUM CHLORIDE 0.9% 50 ML IVPB IV SCH (21:00)
[2020-02-04] MEDS: ASCORBIC ACID 500 MG TAB PO SCH (22:46)
[2020-02-04] MEDS: PRAVASTATIN 40 MG TAB PO SCH (22:46)
[2020-02-04] MEDS: ZINC SULFATE 220 MG CAP PO SCH (22:46)
[2020-02-04] MEDS: APIXABAN 5 MG TAB PO SCH (22:46)
--- NOTE | 2020-02-05 09:19 | Progress Note ---
Assessment and Plan Cultures: Blood culture no growth today SARS-CoV-2 PCR positive A/P: 74-year-old man past medical history hypertension, hyperlipidemia, BPH admitted with COVID-19 pneumonia #Severe COVID-19 pneumonia: Presented with 3 weeks of symptoms, likely outside the utility window of remdesivir. Elevated markers. #Acute hypoxemic respiratory failure: Likely secondary to COVID-19 infection. Currently on 7 L nasal cannula Recs: -Continue dexamethasone 6 mg IV/PO daily for 10 days -Not candidate for remdesivir as it is likely too late for it to be useful in his disease course. -Obtain daily inflammatory markers - ferritin, Ddimer, CRP, LDH-reordered today -Anticoagulation per hospital protocol -Proning as able -Obtain SARS code 2 IgG today -Pulmonary on board High risk mortality Mago Huizar MD [facility] ([facility]) Office [phone] Subjective Date of service: 02/05/20 Principal diagnosis: COVID-19 Interval history: Remains on high flow nasal cannula 7 L, no fever Objective - Exam Narrative Exam: Deferred to avoid COVID-19 transmission - Constitutional Vitals: Vital Signs Temp Pulse Resp BP Pulse Ox 98.8 F 91 H 18 136/93 97 02/05/20 04:56 02/05/20 04:56 02/05/20 04:56 02/05/20 04:56 02/05/20 04:56 Temperature -Last 24 Hours Temperature 98.8 F Temperature 98.4 F Temperature 98.3 F Temperature 98.7 F Temperature 103.1 F - Labs CBC & Chem 7: 02/03/20 12:32 02/03/20 05:17 Labs: Abnormal lab results 02/05/20 Range/Units 08:52 POC Glucose 135 H (70-105) mg/dL
--- NOTE | 2020-02-05 10:23 | Progress Note ---
Assessment and Plan 74 y/o male with acute respiratory failure secondary to COVID 1. Agree with steroids. After labs checked again today would suggest another dose 2. Ordered proning to be done as tolerated during the day and sleep prone at night if possible. Asked nurse to please document this in the nursing notes if being done or not. 3. Steroids 4. Reviewed ID note and appreciate their input 5. Patient on anticoagulation, presuming related to COVID. orderd by IMS Guarded prognosis. Proning is an absolute must. Subjective Date of service: 02/05/20 Principal diagnosis: COVID-19 Interval history: No acute events. Remains on 6-7 liters O2. last sat documented at 97 at 0500 this am. Remainder is negative. Was given lasix yesterday and tolerated it well. Objective Vital Signs - 12hr 02/04/20 02/05/20 22:40 04:56 Temperature 98.8 F Pulse Rate 91 H Respiratory 18 Rate Blood Pressure 136/93 O2 Sat by Pulse 91 97 Oximetry Constitutional: no acute distress Eyes: non-icteric ENT: oropharynx moist Neck: supple Ascultation: Bilateral: rhonchi Cardiovascular: regular rate and rhythm Gastrointestinal: normoactive bowel sounds, soft, non-tender, non-distended Integumentary: normal Extremities: no cyanosis Neurologic: normal mental status Psychiatric: mood appropriate CBC and BMP: 02/03/20 12:32 02/03/20 05:17 ABG, PT/INR, D-dimer: PT/INR, D-dimer PT 13.6 Sec. (12.2-14.9) 02/02/20 Unknown INR 1.05 (0.87-1.13) 02/02/20 Unknown D-Dimer 595.65 ng/mlDDU (0-234) H 02/02/20 Unknown Abnormal lab findings: Abnormal Labs 02/02/20 02/02/20 02/02/20 13:46 13:46 14:00 WBC RBC 3.48 L Hgb 11.0 L Hct 31.0 L MCHC 36 H [place] % (Auto) 9.0 H Lymph # (Auto) 1.1 L Seg Neutrophils % 71.9 H APTT D-Dimer Sodium 135 L Potassium 3.5 L BUN 21 H Glucose 117 H POC Glucose Ferritin 813.5 H AST 62 H Lactate Dehydrogenase 345 H C-Reactive Protein 9.80 H Albumin 3.3 L Coronavirus (PCR) 02/02/20 02/02/20 02/02/20 15:42 15:42 15:42 WBC RBC Hgb Hct MCHC [place] % (Auto) Lymph # (Auto) Seg Neutrophils % APTT D-Dimer 569.00 H Sodium Potassium BUN Glucose 107 H POC Glucose Ferritin 859.1 H AST Lactate Dehydrogenase 509 H C-Reactive Protein 9.60 H Albumin Coronavirus (PCR) 02/02/20 02/03/20 02/03/20 Unknown 05:17 05:17 WBC 3.5 L RBC Hgb Hct MCHC [place] % (Auto) Lymph # (Auto) 0.7 L Seg Neutrophils % 73.4 H APTT 37.8 H D-Dimer 595.65 H Sodium 136 L Potassium BUN 23 H Glucose 204 H POC Glucose Ferritin AST Lactate Dehydrogenase C-Reactive Protein Albumin Coronavirus (PCR) 02/03/20 02/05/20 10:44 08:52 WBC RBC Hgb Hct MCHC [place] % (Auto) Lymph # (Auto) Seg Neutrophils % APTT D-Dimer Sodium Potassium BUN Glucose POC Glucose 135 H Ferritin AST Lactate Dehydrogenase C-Reactive Protein Albumin Coronavirus (PCR) Positive A
[2020-02-05] MEDS: FAMOTIDINE 20 MG TAB PO SCH ×2 (10:55→21:47)
[2020-02-05] MEDS: ASPIRIN EC 81 MG TAB PO SCH (10:55)
[2020-02-05] MEDS: DEXAMETHASONE 4 MG TAB PO SCH (10:55)
[2020-02-05] MEDS: FINASTERIDE 5 MG TAB PO SCH (10:56)
[2020-02-05] MEDS: APIXABAN 5 MG TAB PO SCH ×2 (10:57→21:47)
[2020-02-05] MEDS: ASCORBIC ACID 500 MG TAB PO SCH ×2 (10:57→21:47)
[2020-02-05] MEDS: CITALOPRAM 10 MG TAB PO SCH (10:57)
[2020-02-05] MEDS: PANTOPRAZOLE 40 MG TAB PO SCH (10:57)
[2020-02-05] MEDS: CHOLECALCIFEROL (VIT D3) 5,000 UNIT TAB PO SCH (10:58)
[2020-02-05] MEDS: ZINC SULFATE 220 MG CAP PO SCH ×2 (10:58→21:47)
--- NOTE | 2020-02-05 15:41 | Progress Note ---
Assessment and Plan -- Sepsis Due to COVID-19 pneumonia Continue to treat for underlying cause Patient has normal procalcitonin level -- COVID 19 Pneumonia Coronavirus protocol: Contact precautions, isolation precautions, prone positioning while in bed, supportive care, supplemental oxygen, pulse oximetry, nebulizer therapy, IV steroid, coronavirus PCR ordered and positive +ve COVID-19 antibody, will follow ID recommendation -- Acute Respiratory failure with hypoxia Due to COVID-19 pneumonia Patient currently on 6 L O2 Continue IV steroid, scheduled breathing treatment -- DVT prophylaxis SCD to bilateral lower extremities while in bed, prophylactic anticoagulation -- Advance care planning Disease education conducted, patient is full code, prognosis discussed, care plan discussed, patient knowledges understanding and agreement with care plan, +30 minutes 02/02: Patient tested positive for Covid, continue dexamethasone. Will check for a cough to antibody response. Patient might benefit for convalescent plasma therapy and IV remdesivir. Will await for ID recommendation. 02/03: Not a candidate for remdesivir as he started symptom 2-3 weeks ago. will check for ACOV2 antibody. ID following. 02/04: Covid19 antibody positive. patient today on 2L n/c. will need home O2 on discharge Subjective Date of service: 02/05/20 Principal diagnosis: COVID-19 Interval history: Patient seen and examined. Medical records and medication list reviewed. No acute event overnight noted by the RN. Patient c/o difficulty breathing. Patient is tolerating diet. Positive for Covid test, patient today on 2L n/c O2 Discussed plan of care at bedside with patient. Objective - Exam Narrative Exam: GENERAL: well-developed and well-nourished AAM lying on bed appeared to be in no discomfort. HEENT: Normocephalic. Atraumatic. No conjunctival congestion or icterus. Patient has moist mucous membranes. NECK: Supple. Trachea midline. CHEST/LUNGS: diminished BS auscultated bilaterally, breathing nonlabored. HEART/CARDIOVASCULAR: Regular in rate and rhythm. S1 and S2 positive. ABDOMEN: Abdomen is soft, nontender. Patient has normal bowel sounds. SKIN: There is no rash. Warm and dry. NEURO: No focal motor deficit. Follows command. MUSCULOSKELETAL: No joint effusion or tenderness. EXTRIMITY: No edema, no cyanosis or clubbing. PSYCH: Cooperative. - Constitutional Vitals: Vital Signs - 12hr 02/05/20 04:56 Temperature 98.8 F Pulse Rate 91 H Respiratory 18 Rate Blood Pressure 136/93 O2 Sat by Pulse 97 Oximetry - Labs CBC & Chem 7: 02/03/20 12:32 02/03/20 05:17 Labs: Abnormal lab results 02/03/20 02/05/20 02/05/20 Range/Units 20:38 08:52 14:43 POC Glucose 135 H 161 H (70-105) mg/dL SARS-CoV-2 IgG Ab Reactive A (NonReactive) HEART Score - HEART Score Troponin: Troponin T < 0.010 ng/mL (0.00-0.029) 02/02/20 13:46
[2020-02-05] MEDS: DOXAZOSIN 4 MG TAB PO SCH (15:42)
[2020-02-05 17:08] LABS: C-Reactive Protein 4.3 mg/dL (0.00-1.30)
[2020-02-05] MEDS ORDERED: REMDESIVIR 100 MG in SODIUM CHLORIDE 0.9% 250ML 250 ML IV SCH (21:00)
[2020-02-05] MEDS: PRAVASTATIN 40 MG TAB PO SCH (21:47)
--- NOTE | 2020-02-06 08:31 | Progress Note ---
Assessment and Plan Cultures: Blood culture no growth today SARS-CoV-2 PCR positive A/P: 74-year-old man past medical history hypertension, hyperlipidemia, BPH admitted with COVID-19 pneumonia #Severe COVID-19 pneumonia: Presented with 3 weeks of symptoms, likely outside the utility window of remdesivir. Elevated markers. Markers worsening. #Acute hypoxemic respiratory failure: Likely secondary to COVID-19 infection. Improving now on 2 L nasal cannula. Recs: -SARS Covid 2 IgG positive, patient is not a candidate for Covid convalescent plasma -Continue dexamethasone 6 mg IV/PO daily for 10 days -Not candidate for remdesivir as it is likely too late for it to be useful in his disease course. -Obtain daily inflammatory markers - ferritin, Ddimer, CRP, LDH-recheck tomorrow -Anticoagulation per hospital protocol -Proning as able -Pulmonary on board High risk mortality MD [facility] ([facility]) Office [phone] Subjective Date of service: 02/06/20 Principal diagnosis: COVID-19 Interval history: Patient is now on 2 L nasal cannula, no fever for 48 hours no acute events overnight. Objective - Exam Narrative Exam: Deferred to avoid COVID-19 transmission - Constitutional Vitals: Vital Signs Temp Pulse Resp BP Pulse Ox 97.6 F 63 20 126/83 99 02/06/20 05:33 02/06/20 05:33 02/06/20 05:33 02/06/20 05:33 02/06/20 05:33 Temperature -Last 24 Hours Temperature 97.6 F Temperature 98.1 F Temperature 98.9 F - Labs CBC & Chem 7: 02/03/20 12:32 02/03/20 05:17 Labs: Abnormal lab results 02/03/20 02/05/20 02/05/20 Range/Units 20:38 08:52 14:43 D-Dimer (0-234) ng/mlDDU POC Glucose 135 H 161 H (70-105) mg/dL Ferritin (30.0-300.0) ng/mL Lactate Dehydrogenase (91-180) units/L C-Reactive Protein (0.00-1.30) mg/dL SARS-CoV-2 IgG Ab Reactive A (NonReactive) 02/05/20 02/05/20 02/05/20 Range/Units 16:26 16:26 16:26 D-Dimer 442.86 H (0-234) ng/mlDDU POC Glucose (70-105) mg/dL Ferritin 1217.0 H (30.0-300.0) ng/mL Lactate Dehydrogenase 386 H (91-180) units/L C-Reactive Protein 4.30 H (0.00-1.30) mg/dL SARS-CoV-2 IgG Ab (NonReactive) 02/05/20 Range/Units 18:30 D-Dimer (0-234) ng/mlDDU POC Glucose 242 H (70-105) mg/dL Ferritin (30.0-300.0) ng/mL Lactate Dehydrogenase (91-180) units/L C-Reactive Protein (0.00-1.30) mg/dL SARS-CoV-2 IgG Ab (NonReactive)
--- NOTE | 2020-02-06 08:48 | Progress Note ---
Assessment and Plan 74 y/o male with acute respiratory failure secondary to COVID 1. Await labs to evaluate renal function and potassium. If both normal would consider another dose of lasix IV today, 20 should be fine. 2. Ordered proning to be done as tolerated during the day and sleep prone at night if possible. Asked nurse to please document this in the nursing notes if being done or not. Still not being done 3. Steroids 4. Reviewed ID note and appreciate their input 5. Patient on anticoagulation, presuming related to COVID. orderd by IMS Guarded prognosis. Proning is an absolute must. Wean FiO2 for sats >88%. Down to 2 liters now. Subjective Date of service: 02/06/20 Principal diagnosis: COVID-19 Interval history: Down to 2 liters NC. Good sats. No documentation of proning or not. I/O show net negative of 600. Did not get another dose of lasix on yesterday. Objective Vital Signs - 12hr 02/05/20 02/05/20 02/06/20 21:42 22:38 05:33 Temperature 98.1 F 97.6 F Pulse Rate 81 63 Respiratory 20 20 Rate Blood Pressure 119/77 126/83 O2 Sat by Pulse 97 98 99 Oximetry 02/06/20 08:43 Temperature Pulse Rate Respiratory Rate Blood Pressure O2 Sat by Pulse 94 Oximetry Constitutional: no acute distress Eyes: non-icteric ENT: oropharynx moist Neck: supple Ascultation: Bilateral: rhonchi Cardiovascular: regular rate and rhythm Gastrointestinal: normoactive bowel sounds, soft, non-tender, non-distended Integumentary: normal Extremities: no cyanosis Neurologic: normal mental status Psychiatric: mood appropriate CBC and BMP: 02/03/20 12:32 02/03/20 05:17 ABG, PT/INR, D-dimer: PT/INR, D-dimer PT 13.6 Sec. (12.2-14.9) 02/02/20 Unknown INR 1.05 (0.87-1.13) 02/02/20 Unknown D-Dimer 442.86 ng/mlDDU (0-234) H 02/05/20 16:26 Abnormal lab findings: Abnormal Labs 02/02/20 02/02/20 02/02/20 13:46 13:46 14:00 WBC RBC 3.48 L Hgb 11.0 L Hct 31.0 L MCHC 36 H Hunt % (Auto) 9.0 H Lymph # (Auto) 1.1 L Seg Neutrophils % 71.9 H APTT D-Dimer Sodium 135 L Potassium 3.5 L BUN 21 H Glucose 117 H POC Glucose Ferritin 813.5 H AST 62 H Lactate Dehydrogenase 345 H C-Reactive Protein 9.80 H Albumin 3.3 L Coronavirus (PCR) SARS-CoV-2 IgG Ab 02/02/20 02/02/20 02/02/20 15:42 15:42 15:42 WBC RBC Hgb Hct MCHC [place] % (Auto) Lymph # (Auto) Seg Neutrophils % APTT D-Dimer 569.00 H Sodium Potassium BUN Glucose 107 H POC Glucose Ferritin 859.1 H AST Lactate Dehydrogenase 509 H C-Reactive Protein 9.60 H Albumin Coronavirus (PCR) SARS-CoV-2 IgG Ab 02/02/20 02/03/20 02/03/20 Unknown 05:17 05:17 WBC 3.5 L RBC Hgb Hct MCHC [place] % (Auto) Lymph # (Auto) 0.7 L Seg Neutrophils % 73.4 H APTT 37.8 H D-Dimer 595.65 H Sodium 136 L Potassium BUN 23 H Glucose 204 H POC Glucose Ferritin AST Lactate Dehydrogenase C-Reactive Protein Albumin Coronavirus (PCR) SARS-CoV-2 IgG Ab 02/03/20 02/03/20 02/05/20 10:44 20:38 08:52 WBC RBC Hgb Hct MCHC [place] % (Auto) Lymph # (Auto) Seg Neutrophils % APTT D-Dimer Sodium Potassium BUN Glucose POC Glucose 135 H Ferritin AST Lactate Dehydrogenase C-Reactive Protein Albumin Coronavirus (PCR) Positive A SARS-CoV-2 IgG Ab Reactive A 02/05/20 02/05/20 02/05/20 14:43 16:26 16:26 WBC RBC Hgb Hct MCHC [place] % (Auto) Lymph # (Auto) Seg Neutrophils % APTT D-Dimer 442.86 H Sodium Potassium BUN Glucose POC Glucose 161 H Ferritin 1217.0 H AST Lactate Dehydrogenase C-Reactive Protein Albumin Coronavirus (PCR) SARS-CoV-2 IgG Ab 02/05/20 02/05/20 16:26 18:30 WBC RBC Hgb Hct MCHC [place] % (Auto) Lymph # (Auto) Seg Neutrophils % APTT D-Dimer Sodium Potassium BUN Glucose POC Glucose 242 H Ferritin AST Lactate Dehydrogenase 386 H C-Reactive Protein 4.30 H Albumin Coronavirus (PCR) SARS-CoV-2 IgG Ab
[2020-02-06] MEDS: FINASTERIDE 5 MG TAB PO SCH (10:45)
[2020-02-06] MEDS: ASPIRIN EC 81 MG TAB PO SCH (10:45)
[2020-02-06] MEDS: FAMOTIDINE 20 MG TAB PO SCH ×2 (10:45→22:26)
[2020-02-06] MEDS: DOXAZOSIN 4 MG TAB PO SCH (10:45)
[2020-02-06] MEDS: ASCORBIC ACID 500 MG TAB PO SCH ×2 (10:46→22:25)
[2020-02-06] MEDS: APIXABAN 5 MG TAB PO SCH ×2 (10:46→22:25)
[2020-02-06] MEDS: ZINC SULFATE 220 MG CAP PO SCH ×2 (10:46→22:26)
[2020-02-06] MEDS: DEXAMETHASONE 4 MG TAB PO SCH (10:46)
[2020-02-06] MEDS: CHOLECALCIFEROL (VIT D3) 5,000 UNIT TAB PO SCH (10:46)
[2020-02-06] MEDS: PANTOPRAZOLE 40 MG TAB PO SCH (10:46)
[2020-02-06] MEDS: CITALOPRAM 10 MG TAB PO SCH (10:46)
--- NOTE | 2020-02-06 13:57 | Discharge Summary ---
Providers - Providers Date of Admission: 02/02/20 15:22 Date of discharge: 02/07/20 Attending physician: GABRIEL CLOUD 02/02/20 15:37 Consult to Physician [CONS] Routine Comment: Consulting Provider: EDY ANAYA Physician Instructions: Reason For Exam: pui 02/02/20 15:38 Consult to Physician [CONS] Routine Comment: Consulting Provider: JOSE DAVID ROMO Physician Instructions: Reason For Exam: pui Primary care physician: [employer] WORK[employer] Hospitalization Condition: Stable Pertinent studies: CXR Hospital course: 74-year-old man past medical history hypertension, hyperlipidemia, BPH admitted with COVID-19 pneumonia. Patient noted severely hypoxic in the ER and placed on supplemental O2, started on dexamethasone IV. Patient was not a candidate for remdesivir as he presented to the hospital 2 to 3 weeks after being tested positive for Covid. His inflammatory markers were followed. Patient was positive for [id number] antibody, so he was not a candidate for convalescent plasma therapy. He was supplemental O2 was weaned off to 2 L nasal cannula. Patient was discharged melina e in stable condition. He will follow-up with his PCP in 1 week. Discharge diagnosis: Sepsis due to COVID-19 infection COVID-19 pneumonia Acute respiratory failure with hypoxia due to COVID-19 pneumonia Hypertension, moderately controlled Hyperlipidemia we will continue home statin regimen BPH, no acute issue Disposition: DC/[place]-06 HOME UNDER HOME [facility] Time spent for discharge: 34 minutes Core Measure Documentation - Palliative Care Palliative Care/ Comfort Measures: Not Applicable - Core Measures Any of the following diagnoses?: none Exam - Physical Exam Narrative exam: GENERAL: well-developed and well-nourished AAM lying on bed appeared to be in no discomfort. HEENT: Normocephalic. Atraumatic. No conjunctival congestion or icterus. Patient has moist mucous membranes. NECK: Supple. Trachea midline. CHEST/LUNGS: diminished BS auscultated bilaterally, breathing nonlabored. HEART/CARDIOVASCULAR: Regular in rate and rhythm. S1 and S2 positive. ABDOMEN: Abdomen is soft, nontender. Patient has normal bowel sounds. SKIN: There is no rash. Warm and dry. NEURO: No focal motor deficit. Follows command. MUSCULOSKELETAL: No joint effusion or tenderness. EXTRIMITY: No edema, no cyanosis or clubbing. PSYCH: Cooperative. - Constitutional Vitals: Temp Pulse Resp BP Pulse Ox 98.1 F 93 H 18 128/89 94 02/06/20 12:43 02/06/20 12:43 02/06/20 12:43 02/06/20 12:43 02/06/20 12:43 Plan Activity: advance as tolerated Weight Bearing Status: Weight Bear as Tolerated Diet: low fat, low salt Special Instructions: record daily BP diary, occupational therapy Durable Medical Equipment Needed Upon Discharge: Oxygen (2 L) Follow up with: PRIMARY MD PATRICE [Primary Care Provider] - 3-5 Days JOSE DAVID ROMO MD [Staff Physician] - 7 Days Prescriptions: dexAMETHasone [Decadron] 6 mg PO DAILY #5 tablet Apixaban [Eliquis] 5 mg PO Q12HR #14 tablet Famotidine [Pepcid] 20 mg PO BID #20 tablet Ascorbic Acid [Vitamin C] 1,000 mg PO BID #20 tablet Cholecalciferol (Vitamin D3) [Vitamin D3] 5,000 unit PO DAILY #14 tablet Zinc Sulfate 220 mg PO BID #20 capsule
--- NOTE | 2020-02-06 14:06 | Discharge Summary ---
Providers - Providers Date of Admission: 02/02/20 15:22 Date of discharge: 02/06/20 Attending physician: GABRIEL CLOUD 02/02/20 15:37 Consult to Physician [CONS] Routine Comment: Consulting Provider: EDY ANAYA Physician Instructions: Reason For Exam: pui 02/02/20 15:38 Consult to Physician [CONS] Routine Comment: Consulting Provider: JOSE DAVID ROMO Physician Instructions: Reason For Exam: pui Primary care physician: MANAGER IN[employer]LLIGENCE Hospitalization Condition: Stable Pertinent studies: Chest x-ray Disposition: DC- TO HOME OR SELFCARE Time spent for discharge: 34 minutes Core Measure Documentation - Palliative Care Palliative Care/ Comfort Measures: Not Applicable - Core Measures Any of the following diagnoses?: heart failure - Heart Failure Discharge Requirements HAYLEE/ARB for LVSD if EF <40%: Yes Beta roshan at discharge: Yes Exam - Physical Exam Narrative exam: GENERAL: well-developed and well-nourished AAM lying on bed appeared to be in no discomfort. HEENT: Normocephalic. Atraumatic. No conjunctival congestion or icterus. Patient has moist mucous membranes. NECK: Supple. Trachea midline. CHEST/LUNGS: diminished BS auscultated bilaterally, breathing nonlabored. HEART/CARDIOVASCULAR: Regular in rate and rhythm. S1 and S2 positive. ABDOMEN: Abdomen is soft, nontender. Patient has normal bowel sounds. SKIN: There is no rash. Warm and dry. NEURO: No focal motor deficit. Follows command. MUSCULOSKELETAL: No joint effusion or tenderness. EXTRIMITY: No edema, no cyanosis or clubbing. PSYCH: Cooperative. - Constitutional Vitals: Temp Pulse Resp BP Pulse Ox 98.1 F 93 H 18 128/89 94 02/06/20 12:43 02/06/20 12:43 02/06/20 12:43 02/06/20 12:43 02/06/20 12:43 Plan Activity: advance as tolerated Weight Bearing Status: Non-Weight Bearing Diet: low fat, low salt Special Instructions: restrict fluid intake to (1.2L daily), record daily BP diary Follow up with: JOSE DAVID ROMO MD [Staff Physician] - 7 Days PRIMARY CARE, [Primary Care Provider] - 3-5 Days Prescriptions: dexAMETHasone [Decadron] 6 mg PO DAILY #5 tablet Apixaban [Eliquis] 5 mg PO Q12HR #14 tablet Famotidine [Pepcid] 20 mg PO BID #20 tablet Ascorbic Acid [Vitamin C] 1,000 mg PO BID #20 tablet Cholecalciferol (Vitamin D3) [Vitamin D3] 5,000 unit PO DAILY #14 tablet Zinc Sulfate 220 mg PO BID #20 capsule
[2020-02-06] MEDS: PRAVASTATIN 40 MG TAB PO SCH (22:25)
[2020-02-07] MEDS: ACETAMINOPHEN 325 MG TAB PO PRN (01:25)
--- NOTE | 2020-02-07 09:36 | Progress Note ---
Assessment and Plan Cultures: Blood culture no growth today SARS-CoV-2 PCR positive A/P: 74-year-old man past medical history hypertension, hyperlipidemia, BPH admitted with COVID-19 pneumonia #Severe COVID-19 pneumonia: Presented with 3 weeks of symptoms, likely outside the utility window of remdesivir. Elevated markers. Markers worsening. #Acute hypoxemic respiratory failure: Likely secondary to COVID-19 infection. Improving now on 2 L nasal cannula. Recs: -SARS Covid 2 IgG positive, patient is not a candidate for Covid convalescent plasma -Continue dexamethasone 6 mg IV/PO daily for 10 days -Not candidate for remdesivir as it is likely too late for it to be useful in his disease course. -Obtain daily inflammatory markers - ferritin, Ddimer, CRP, LDH-recheck today -Anticoagulation per hospital protocol -Proning as able -Pulmonary on board Agree with arranging home O2, patient may need placement, lives alone High risk mortality Mago Huizar MD [facility] ([facility]) Office [phone] Subjective Date of service: 02/07/20 Principal diagnosis: COVID-19 Interval history: P patient remains on 2 L, no fever for 3 days, no acute events. Objective - Exam Narrative Exam: Deferred to avoid COVID-19 transmission - Constitutional Vitals: Vital Signs Temp Pulse Resp BP Pulse Ox 98.1 F 97 H 20 118/70 98 02/07/20 04:09 02/07/20 04:09 02/07/20 04:09 02/07/20 04:09 02/07/20 09:26 Temperature -Last 24 Hours Temperature 98.1 F Temperature 98.1 F Temperature 98.8 F Temperature 98.1 F - Labs CBC & Chem 7: 02/03/20 12:32 02/03/20 05:17
[2020-02-07] MEDS: FAMOTIDINE 20 MG TAB PO SCH (09:53)
[2020-02-07] MEDS: PANTOPRAZOLE 40 MG TAB PO SCH (09:53)
[2020-02-07] MEDS: DEXAMETHASONE 4 MG TAB PO SCH (09:54)
[2020-02-07] MEDS: APIXABAN 5 MG TAB PO SCH (09:54)
[2020-02-07] MEDS: ZINC SULFATE 220 MG CAP PO SCH (09:54)
[2020-02-07] MEDS: ASPIRIN EC 81 MG TAB PO SCH (09:54)
[2020-02-07] MEDS: ASCORBIC ACID 500 MG TAB PO SCH (09:54)
[2020-02-07] MEDS: CHOLECALCIFEROL (VIT D3) 5,000 UNIT TAB PO SCH (09:55)
[2020-02-07] MEDS: FINASTERIDE 5 MG TAB PO SCH (09:55)
[2020-02-07] MEDS: CITALOPRAM 10 MG TAB PO SCH (09:55)
[2020-02-07] MEDS: DOXAZOSIN 4 MG TAB PO SCH (09:55)
[2020-02-07 11:47] LABS: C-Reactive Protein 3.1 mg/dL (0.00-1.30)
--- NOTE | 2020-02-07 12:41 | Progress Note ---
Assessment and Plan 74 y/o male with acute respiratory failure secondary to COVID 02/07/2020: Pulm status appears stable. Will sign off. 1. Await labs to evaluate renal function and potassium. If both normal would consider another dose of lasix IV today, 20 should be fine. 2. Ordered proning to be done as tolerated during the day and sleep prone at night if possible. Asked nurse to please document this in the nursing notes if being done or not. Still not being done 3. Steroids 4. Reviewed ID note and appreciate their input 5. Patient on anticoagulation, presuming related to COVID. orderd by IMS Guarded prognosis. Proning is an absolute must. Wean FiO2 for sats >88%. Down to 2 liters now. Subjective Date of service: 02/07/20 Principal diagnosis: COVID-19 Interval history: Patient discharged yesterday after home O2 arranged but then cancelled by primary secondary to Daughters concerns in regards to weakness and patient living along. Room air sats at rest were fine. Did desat with ambulation. Objective Vital Signs - 12hr 02/07/20 02/07/20 02/07/20 04:09 09:26 09:55 Temperature 98.1 F Pulse Rate 97 H 79 Respiratory 20 Rate Blood Pressure 118/70 122/80 O2 Sat by Pulse 98 98 Oximetry Constitutional: no acute distress Eyes: non-icteric ENT: oropharynx moist Neck: supple Ascultation: Bilateral: rhonchi Cardiovascular: regular rate and rhythm Gastrointestinal: normoactive bowel sounds, soft, non-tender, non-distended Integumentary: normal Extremities: no cyanosis Neurologic: normal mental status Psychiatric: mood appropriate CBC and BMP: 02/03/20 12:32 02/03/20 05:17 ABG, PT/INR, D-dimer: PT/INR, D-dimer PT 13.6 Sec. (12.2-14.9) 02/02/20 Unknown INR 1.05 (0.87-1.13) 02/02/20 Unknown D-Dimer 499.61 ng/mlDDU (0-234) H 02/07/20 10:40 Abnormal lab findings: Abnormal Labs 02/02/20 02/02/20 02/02/20 13:46 13:46 14:00 WBC RBC 3.48 L Hgb 11.0 L Hct 31.0 L MCHC 36 H [place] % (Auto) 9.0 H Lymph # (Auto) 1.1 L Seg Neutrophils % 71.9 H APTT D-Dimer Sodium 135 L Potassium 3.5 L BUN 21 H Glucose 117 H POC Glucose Ferritin 813.5 H AST 62 H Lactate Dehydrogenase 345 H C-Reactive Protein 9.80 H Albumin 3.3 L Coronavirus (PCR) SARS-CoV-2 IgG Ab 02/02/20 02/02/20 02/02/20 15:42 15:42 15:42 WBC RBC Hgb Hct MCHC [place] % (Auto) Lymph # (Auto) Seg Neutrophils % APTT D-Dimer 569.00 H Sodium Potassium BUN Glucose 107 H POC Glucose Ferritin 859.1 H AST Lactate Dehydrogenase 509 H C-Reactive Protein 9.60 H Albumin Coronavirus (PCR) SARS-CoV-2 IgG Ab 02/02/20 02/03/20 02/03/20 Unknown 05:17 05:17 WBC 3.5 L RBC Hgb Hct MCHC [place] % (Auto) Lymph # (Auto) 0.7 L Seg Neutrophils % 73.4 H APTT 37.8 H D-Dimer 595.65 H Sodium 136 L Potassium BUN 23 H Glucose 204 H POC Glucose Ferritin AST Lactate Dehydrogenase C-Reactive Protein Albumin Coronavirus (PCR) SARS-CoV-2 IgG Ab 02/03/20 02/03/20 02/05/20 10:44 20:38 08:52 WBC RBC Hgb Hct MCHC [place] % (Auto) Lymph # (Auto) Seg Neutrophils % APTT D-Dimer Sodium Potassium BUN Glucose POC Glucose 135 H Ferritin AST Lactate Dehydrogenase C-Reactive Protein Albumin Coronavirus (PCR) Positive A SARS-CoV-2 IgG Ab Reactive A 02/05/20 02/05/20 02/05/20 14:43 16:26 16:26 WBC RBC Hgb Hct MCHC [place] % (Auto) Lymph # (Auto) Seg Neutrophils % APTT D-Dimer 442.86 H Sodium Potassium BUN Glucose POC Glucose 161 H Ferritin 1217.0 H AST Lactate Dehydrogenase C-Reactive Protein Albumin Coronavirus (PCR) SARS-CoV-2 IgG Ab 02/05/20 02/05/20 02/07/20 16:26 18:30 10:40 WBC RBC Hgb Hct MCHC [place] % (Auto) Lymph # (Auto) Seg Neutrophils % APTT D-Dimer 499.61 H Sodium Potassium BUN Glucose POC Glucose 242 H Ferritin AST Lactate Dehydrogenase 386 H C-Reactive Protein 4.30 H Albumin Coronavirus (PCR) SARS-CoV-2 IgG Ab 02/07/20 10:40 WBC RBC Hgb Hct MCHC [place] % (Auto) Lymph # (Auto) Seg Neutrophils % APTT D-Dimer Sodium Potassium BUN Glucose POC Glucose Ferritin AST Lactate Dehydrogenase 296 H C-Reactive Protein 3.10 H Albumin Coronavirus (PCR) SARS-CoV-2 IgG Ab
--- NOTE | 2020-02-07 15:21 | Progress Note ---
Assessment and Plan -- Sepsis Due to COVID-19 pneumonia Continue to treat for underlying cause Patient has normal procalcitonin level -- COVID 19 Pneumonia Coronavirus protocol: Contact precautions, isolation precautions, prone positioning while in bed, supportive care, supplemental oxygen, pulse oximetry, nebulizer therapy, IV steroid, coronavirus PCR ordered and positive +ve COVID-19 antibody, will follow ID recommendation -- Acute Respiratory failure with hypoxia Due to COVID-19 pneumonia Patient currently on 6 L O2 Continue IV steroid, scheduled breathing treatment -- DVT prophylaxis SCD to bilateral lower extremities while in bed, prophylactic anticoagulation -- Advance care planning Disease education conducted, patient is full code, prognosis discussed, care plan discussed, patient knowledges understanding and agreement with care plan, +30 minutes 02/02: Patient tested positive for Covid, continue dexamethasone. Will check for a cough to antibody response. Patient might benefit for convalescent plasma therapy and IV remdesivir. Will await for ID recommendation. 02/03: Not a candidate for remdesivir as he started symptom 2-3 weeks ago. will check for ACOV2 antibody. ID following. 02/04: Covid19 antibody positive. patient today on 2L n/c. will need home O2 on discharge 02/05: Ordered for discharge but per family and consumer sciences teacher refused to accept the patient as patient lives alone. There requesting PT eval before discharge and home health. manufacturing manager notified and order placed Subjective Date of service: 02/06/20 Principal diagnosis: COVID-19 Interval history: Patient seen and examined. Medical records and medication list reviewed. No acute event overnight noted by the RN. Patient c/o difficulty breathing. Patient is tolerating diet. patient today on 2-4L n/c O2 Patient was planned for discharge today but family refused to accept the patient as he lives alone Requested a PT eval Objective - Constitutional Vitals: Vital Signs - 12hr 02/07/20 02/07/20 02/07/20 04:09 09:26 09:55 Temperature 98.1 F Pulse Rate 97 H 79 Respiratory 20 Rate Blood Pressure 118/70 122/80 O2 Sat by Pulse 98 98 Oximetry 02/07/20 02/07/20 09:59 11:56 Temperature 98.7 F Pulse Rate 106 H 120 H Respiratory 20 Rate Blood Pressure 122/80 123/95 O2 Sat by Pulse 96 90 Oximetry - Labs CBC & Chem 7: 02/03/20 12:32 02/03/20 05:17 Labs: Abnormal lab results 02/07/20 02/07/20 02/07/20 Range/Units 10:40 10:40 10:40 D-Dimer 499.61 H (0-234) ng/mlDDU Ferritin 810.2 H (30.0-300.0) ng/mL Lactate Dehydrogenase 296 H (91-180) units/L C-Reactive Protein 3.10 H (0.00-1.30) mg/dL HEART Score - HEART Score Troponin: Troponin T < 0.010 ng/mL (0.00-0.029) 02/02/20 13:46
--- NOTE | 2020-02-07 17:46 | Event Note ---
Date: 02/07/20 Noted PT note and cleared for discharge with HH Spoke with patient's Son and family willing to take patient home.
[2020-02-07 18:39] VITALS: BP 128/81
== END 2020-02-07 19:25 | disposition home health service (06) | DRG 871 ==
LOC: ED 13:06 → 3A 15:22
PROVIDERS: ADMIT Internal Medicine; ATTEND Internal Medicine
DX: A41.89 Other specified sepsis (principal); U07.1 COVID-19; J96.01 Acute respiratory failure with hypoxia; J12.89 Other viral pneumonia; N40.0 Benign prostatic hyperplasia without lower urinary tract symptoms; I10 Essential (primary) hypertension; E78.5 Hyperlipidemia, unspecified; K21.9 Gastro-esophageal reflux disease without esophagitis; Z79.899 Other long term (current) drug therapy; Z82.49 Family history of ischemic heart disease and other diseases of the circulatory system
CPT/HCPCS: 36415; 71045; 80048; 80076; 82140; 82728; 82947; 82962; 83615; 83880; 83930; 84145; 84484; 85025; 85027; 85379; 85610; 85730; 86140; 86850; 86900; 86901; 87040; 90471; 93005; 94760; 96372; G0378; A9270-GY; J0696; J1170; J1644; J1940; J2920; J8540; U0003